=== PATIENT | female | born 1990 | race Caucasian/White ===

== ENCOUNTER 2018-12-17 20:52 | Emergency (ER) | payer MEDICAID ==
[~2018-12-17] VITALS: Ht 152.4 cm; Wt 50.0 kg
[2018-12-17 22:20] VITALS: BP 109/71
== END 2018-12-18 03:05 | disposition left against medical advice (07) ==
LOC: ER 20:52
DX: Z53.21 Procedure and treatment not carried out due to patient leaving prior to being seen by health care provider (principal); E11.9 Type 2 diabetes mellitus without complications
CPT/HCPCS: 82962

== ENCOUNTER 2024-06-27 04:59 | Emergency (ER) | payer BC, OTHER ==
[~2024-06-27] VITALS: Ht 160 cm; Wt 52.0 kg
[2024-06-27 05:07] VITALS: BP 113/73; PULSE 87; RESP 16; TEMP 98; O2SAT 99
== END 2024-06-27 06:27 | disposition left against medical advice (07) ==
LOC: ER 04:59
DX: M54.2 Cervicalgia (principal); Z53.21 Procedure and treatment not carried out due to patient leaving prior to being seen by health care provider